=== PATIENT | male | born 2000 | race Two or more races ===

== ENCOUNTER 2025-06-01 01:14 | Emergency (ER) | payer MEDICAID, OTHER ==
[~2025-06-01] VITALS: Ht 195.6 cm; Wt 145.0 kg
[2025-06-01 01:19] VITALS: BP 116/78; PULSE 102; RESP 18; TEMP 98.3; O2SAT 96
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
== END 2025-06-01 01:57 | disposition home or self-care (01) ==
LOC: ER 01:14
DX: S31.11 Laceration without foreign body of abdominal wall without penetration into peritoneal cavity (principal); Z48.02 Encounter for removal of sutures; X58.XXXD Exposure to other specified factors, subsequent encounter